=== PATIENT | female | born 1995 | race Asian ===

== ENCOUNTER 2020-08-09 02:24 | Emergency (ER) | payer OTHER ==
[~2020-08-09] VITALS: Ht 157.5 cm; Wt 50.0 kg
[2020-08-09] MEDS ORDERED: IBUP-2029 PO (03:22)
[2020-08-09 04:50] VITALS: BP 125/84
== END 2020-08-09 04:52 | disposition home or self-care (01) ==
LOC: ER 02:24
DX: S93.601A Unspecified sprain of right foot, initial encounter (principal); W22.8XXA Striking against or struck by other objects, initial encounter; Y93.89 Activity, other specified; Y92.238 Other place in hospital as the place of occurrence of the external cause; Y99.8 Other external cause status
CPT/HCPCS: 73630; 99283